=== PATIENT | male | born 1960 | race Caucasian/White ===

== ENCOUNTER 2024-02-16 12:44 | Emergency (ER) | payer OTHER, SELFPAY ==
[2024-02-16] VITALS (7 sets, daily range): BP systolic 129–147; BP diastolic 72–89; BMI 44.3
[2024-02-16 13:09] LABS: % Basophils 0.7 % (0-2); % Eosinophils 2.4 % (0-6); % Immature Granulocytes 0.3 % (0-0.5); % Lymphocytes 10.1 % (20.5-51.1); % Monocytes 11.3 % (1.7-9.3); % Neutrophils 75.2 % (42.2-75.2); Absolute Basophils 0.1 10^3/uL (0-0.2); Absolute Eosinophils 0.2 10^3/uL (0-0.7); Absolute Lymphocytes 0.9 10^3/uL (1.2-3.4); Absolute Neutrophils 6.9 10^3/uL (1.4-6.5); Hematocrit 48.2 % (39.0-52.0); Hemoglobin 15.2 g/dL (13.0-18.0); Mean Corp Hgb Conc. 31.5 g/dL (33.0-37.0); Mean Corpuscular Hgb 25.3 pg (27.0-31.0); Mean Corpuscular Volume 80.3 fL (80.0-94.0); Mean Platelet Volume 8.8 fL (7.4-10.4); Nucleated Red Blood Cells % 0 % (-); Platelet Count 233 10^3/uL (130-400); Red Cell Dist. Width 17.4 % (11.5-14.5); White Blood Cell Count 9.2 10^3/uL (4.8-10.8)
[2024-02-16 13:23] LABS: ALT (SGPT) 24 U/L (0-50); AST (SGOT) 21 U/L (17-59); Albumin 4.2 g/dl (3.5-5.0); Alkaline Phosphatase 59 U/L (38-126); Blood Urea Nitrogen 26 mg/dl (9-20); Calcium 9.5 mg/dl (8.4-10.2); Carbon Dioxide 28 mmol/L (22-30); Chloride 102 mmol/L (98-107); Glucose 114 mg/dl (70-99); Potassium 4.6 mmol/L (3.5-5.1); Sodium 135 mmol/L (135-145); Total Bilirubin 0.7 mg/dl (0.2-1.3); Total Protein 6.9 g/dl (6.3-8.2); eGFR > 60.00
[2024-02-16 13:35] LABS: Troponin I < 0.012 ng/ml
[2024-02-16] MEDS: NITROSTAT (SUBLINGUAL) 0.400000000000000022 MG SL (16:12)
--- NOTE | 2024-02-16 16:36 | ED.GENMED ---
History of Present Illness
General
Chief Complaint: Chest Pain
Source: patient
Exam Limitations: none
Time Seen by Provider: 02/16/24 14:45
Nursing documentation reviewed up to this point in time: agreed with
Travel History
Have you had any contact with someone who has COVID-19?: No
Do you have any symptoms of coronavirus? Fever > 100 degrees, chills, cough, shortness of breath, sore throat, loss of taste or smell, muscle aches, or headache?: No
History of Present Illness
History of Present Illness:
Patient presents to ED secondary to persistent left-sided chest tightness over the past 10 days along with intermittent fluttering sensation lasting 'seconds'. Denies fever or chills. Denies nausea, vomiting, or diarrhea. Denies trauma. Denies
loss of sensation or weakness. Denies recent illness. Patient recently has had change in his medications for BPH. 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 At that time, patient states that his
chest pain was a lot more severe, but unable to recall whether his chest pain was similar to what he is experiencing today. Patient has an appointment with new extrusion former, secondary to his insurance change, next month. Denies leg pain or
swelling. Denies back pain. Denies recent travel or surgery. Patient is currently taking Eliquis secondary to atrial fibrillation, which developed after CABG.
Past History
Past History
ED Past Medical History: Asthma, COPD and HTN
ED Past Surgical History: None and Other (Umbilical herniorrhaphy)
Patient has exhibited threatening behavior?: No
PSI?: No
Social History
Tobacco: Former smoker
Alcohol: Occasional
Drug: None
Personal: Single
Living: alone
Employment: Employed
Family History
Family History: Other (Noncontributory)
Review of Systems
Review of Systems
Allergies reviewed?: Yes
All Other Systems: ROS reviewed and negative except as documented in HPI and ROS
Constitutional: Reports no symptoms
EENT: Reports no symptoms
Respiratory: Reports no symptoms
Cardiac: Reports chest pain and palpitations
ABD/GI: Reports no symptoms
: Reports no symptoms
Musculoskeletal: Reports no symptoms
Skin: Reports no symptoms
Neurological: Reports no symptoms
Phy Exam
Physical Exam
Physical Exam:
Physical Exam
General: no apparent distress, not acutely ill. afebrile. obese.
Head: nc/at. eomi
Neck: supple. no meningeal signs.
Heart: s1/s2 regular rate and rhythm, no murmur. equal radial pulses.
Lungs: no acute respiratory distress. clear bilaterally
Abdomen: normal bowel sounds. not tender.
Neuro: alert and oriented. no focal neurological deficits
Skin: no rash
Psychiatric: well kept. interactive and cooperative
Extremities: no edema. no calf tenderness.
Scores
Heart Score for Chest Pain Patients
STEMI patient?: No
History: Slightly or Non-Suspicious
ECG: Normal
Age: >/= 65 years
Risk Factors: >/= 3 Risk Factors or History of CAD
Troponin: </= Normal Limit
Heart Score for Chest Pain Patients: 4
Heart Score Risk: 20.3% MACE over next 6 weeks
Course
Orders/Labs/Results
Orders:
Orders
02/16/24 12:46
EKG [Electrocardiogram (*1)] Urgent
Reason for Study: Chest Pain
EKG- Treatment ONCE
02/16/24 12:58
Complete Blood Count/With Diff Urgent
Comprehensive Metabolic Panel Urgent
NT-proBNP Urgent
Comment: ADD ON
Troponin I Urgent
02/16/24 16:08
Nitroglycerin Sublingual [Nitrostat (Sublingual)] 0.4 mg SL NOW STA
02/16/24 16:28
Add On- LAB Urgent
Tests Added?: ProBNP
CR Chest - 2 Views Urgent
Comment:
Reason For Exam: chest pain
Abnormal Lab Results
02/16/24
12:58
MCH 25.3 L pg
(27.0-31.0)
MCHC 31.5 L g/dL
(33.0-37.0)
RDW 17.4 H %
(11.5-14.5)
Absolute Neuts (auto) 6.9 H 10^3/uL
(1.4-6.5)
Absolute Lymphs (auto) 0.9 L 10^3/uL
(1.2-3.4)
Absolute Monos (auto) 1.0 H 10^3/uL
(0.1-0.6)
Lymphocytes % 10.1 L %
(20.5-51.1)
Monocytes % 11.3 H %
(1.7-9.3)
BUN 26 H mg/dl
(9-20)
Glucose 114 H mg/dl
(70-99)
02/16/24 12:58
02/16/24 12:58
Vital Signs
Initial and Last Documented VS:
Initial Vital Signs
Temp Pulse Resp BP Pulse Ox
98.0 F 88 16 131/89 98
02/16/24 12:50 02/16/24 12:50 02/16/24 12:50 02/16/24 12:50 02/16/24 12:50
Last Documented Vital Signs
Temp Pulse Resp BP Pulse Ox
98.0 F 79 19 147/79 94
02/16/24 12:50 02/16/24 18:53 02/16/24 18:53 02/16/24 18:53 02/16/24 18:53
MDM/Problems Addressed
MDM/Problems Addressed:
Patient with an unremarkable workup in ED, including blood work, EKG. In light of patient's prolonged symptoms (greater than 10 days), along with negative workup, it is quite possible that symptoms are less likely cardiac. However, given patient's
recent cardiac history, it is reasonable that he does follow-up with extrusion former for for urgent f/u.
Discussed with (cardiology) - agrees with plan to discharge home. If patient is unable to be seen by his new extrusion former, patient may reach out to [place] [facility] office for outpatient follow-up.
Patient will be advised to ED with worsening symptoms.
*Critical Care Note
Total Time (30-74mins, 75-104mins- exclusive of procedures): Not Applicable
ED Attending Note
-
Portions of this chart may have been created with voice recognition software.� Occasional wrong word or��sound alike� substitutions may have occurred due to the inherent limitations of voice recognition software.
Discharge Plan
Departure
Patient Disposition: Home (Routine Discharge)
Date of Disposition: 02/16/24
Time of Disposition: 18:23
Patient with high blood pressure during this ER visit?: Yes
Condition: Good
Discharge Problem:
Chest pain
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
Prescriptions:
No Action
tolterodine 4 mg capsule,extended release 24hr
4 mg PO QPM
Myrbetriq 50 mg tablet extended release 24 hr
50 mg PO DAILY
atorvastatin 80 mg Tablet
80 mg PO QPM Qty: 30 1RF
acetaminophen 325 mg Tablet
650 mg PO Q6HPRN PRN (Reason: mild pain,headache,temp >101F ) Qty: 0 0RF
carvedilol 12.5 mg Tablet
12.5 mg PO BID Qty: 60 1RF
diltiazem HCl 180 mg Capsule,Extended Release 24hr
180 mg PO DAILY Qty: 30 1RF
sennosides-docusate sodium [Senna Plus] 8.6-50 mg Tablet
1 tab PO Q12 PRN (Reason: Constipation) Qty: 0 0RF
pantoprazole 40 mg Tablet,Delayed Release (Dr/Ec)
40 mg PO DAILY Qty: 30 1RF
aspirin 81 mg Tablet,Chewable
81 mg PO DAILY Qty: 30 1RF
albuterol sulfate 90 mcg/actuation HFA aerosol inhaler
2 puff INHALATION R Q4 PRN (Reason: sob/wheezing)
budesonide-formoterol 160-4.5 mcg/actuation HFA aerosol inhaler
1 puff INHALATION R DAILY
Spiriva Respimat 2.5 mcg/actuation mist
1 inh INHALATION R DAILY
oxycodone 5 mg tablet
5 mg PO Q6HPRN PRN (Reason: moderate pain)
Patient Comments:
06/18/2023: last filled 06/12/23, 24 tabs for 6 days from [facility]
Eliquis 5 mg tablet
5 mg PO BID Qty: 60 0RF
furosemide [Lasix] 40 mg Tablet
40 mg PO DAILY
potassium chloride [K-Dur] 20 mEq Tablet,Er Particles/Crystals
20 meq PO DAILY
amiodarone 200 mg tablet
200 mg PO BID
Rx Instructions:
Take 1 tablet twice daily for 2 weeks THEN
Take 1 tablet daily for maintenance
furosemide [Lasix] 40 mg tablet
40 mg PO BID Qty: 30 0RF
Referrals:
Ab Reed MD [Family Provider] -
Activity Restrictions/Additional Instructions:
As discussed, please follow-up with your new extrusion former for an urgent evaluation as an outpatient. Please consider return to ED with worsening symptoms. In the meantime, if your symptoms evolve or persist, you may also reach out to your most
recent extrusion former office, Dr. JUAN Younger, for evaluation as well.
Interventions
Interventions:
*Risk Screen - Suicide Last Done: 02/16/24 14:49
*General Assessment Last Done: 02/16/24 14:49
*Neglect/Abuse Screening Last Done: 02/16/24 14:49
ED- Fall Risk Assessment Last Done: 02/16/24 14:49
*ED COVID-19 Vaccine History Last Done: 02/16/24 12:50
*Nursing Disposition Last Done: 02/16/24 19:00
ED- Cardiac Assessment Last Done: 02/16/24 14:49
Discharge Date and Time
Discharge Date/Time: 02/16/24 19:00
[2024-02-16 17:14] LABS: NT-proBNP 97.9 pg/ml
== END 2024-02-16 19:00 | disposition home or self-care (01) ==
LOC: EMR 12:44
PROVIDERS: Emergency Medicine; EMERGENCY PHYSICIAN Emergency Medicine; FAMILY PHYSICIAN Family Medicine
DX: R07.89 Other chest pain (principal); R00.2 Palpitations; N40.1 Benign prostatic hyperplasia with lower urinary tract symptoms; I48.92 Unspecified atrial flutter; K21.9 Gastro-esophageal reflux disease without esophagitis; N32.81 Overactive bladder; M19.90 Unspecified osteoarthritis, unspecified site; I48.91 Unspecified atrial fibrillation; I10 Essential (primary) hypertension; J45.909 Unspecified asthma, uncomplicated; I25.2 Old myocardial infarction; Z95.1 Presence of aortocoronary bypass graft; Z87.891 Personal history of nicotine dependence; Z79.01 Long term (current) use of anticoagulants; Z79.82 Long term (current) use of aspirin
CPT/HCPCS: 99284; 71046; 80053; 83880; 84484; 85025; 93005